=== PATIENT | male | born 2000 | race Caucasian/White ===

== ENCOUNTER 2025-04-12 15:42 | Emergency (ER) | payer OTHER ==
[~2025-04-12] VITALS: Ht 170.2 cm; Wt 79.4 kg
[2025-04-12] MEDS ORDERED: ACETAMINOPHEN 325 MG TABLET ONE (17:38)
[2025-04-12] MEDS: ACETAMINOPHEN 325 MG TABLET PO ONE (17:42)
[2025-04-12] MEDS: SILVER SULFADIAZINE 50 GM JAR TP PRN (17:50)
[2025-04-12] MEDS ORDERED: MUPI1OIN5 TP (18:08)
[2025-04-12] MEDS ORDERED: ACET325C7 PO (18:08)
[2025-04-12] MEDS ORDERED: ALOE237G TP (18:08)
[2025-04-12 18:21] VITALS: BP 129/84; TEMP 98; O2SAT 99
== END 2025-04-12 18:22 | disposition home or self-care (01) ==
LOC: ER 15:47
DX: L55.0 Sunburn of first degree (principal)